=== PATIENT | male | born 1995 | race African-American/Black ===

== ENCOUNTER 2018-07-21 11:58 | Emergency (ER) | payer SELFPAY ==
[~2018-07-21] VITALS: Ht 185.4 cm; Wt 73.5 kg
[2018-07-21 12:31] LABS: AMPHET/METH SCREEN,URINE POSITIVE (NEGATIVE); BARBITURATE SCREEN, URINE NEGATIVE (NEGATIVE); BENZODIAZEPINES SCREEN,URINE NEGATIVE (NEGATIVE); CANNABINOID SCREEN,URINE POSITIVE (NEGATIVE); COCAINE SCREEN,URINE NEGATIVE (NEGATIVE); METHADONE SCREEN, URINE NEGATIVE (NEGATIVE); OPIATE SCREEN,URINE POSITIVE (NEGATIVE)
[2018-07-21 12:32] LABS: PHENCYCLIDINE SCREEN,URINE NEGATIVE (NEGATIVE)
[2018-07-21] MEDS ORDERED: ACETAMINOPHEN 325 MG TABLET PO ONE (12:45)
[2018-07-21] MEDS ORDERED: HALOPERIDOL LACTATE 5 MG/ML VIAL ONE (13:01)
[2018-07-21] MEDS ORDERED: DiphenhydrAMINE HCL 50 MG/ML VIAL ONE (13:01)
[2018-07-21] MEDS ORDERED: LORazepam 2 MG/ML VIAL ONE (13:01)
[2018-07-21 13:33] LABS: BASOPHILS % (AUTO) 0.6 % (0.0-2.0); EOSINOPHILS % (AUTO) 0.5 % (1.0-6.0); HEMATOCRIT 40.7 % (41-53); HEMOGLOBIN 13.5 g/dL (13.5-17.5); LYMPHOCYTES % (AUTO) 33.7 % (22.0-44.0); MEAN CORPUSCULAR HEMOGLOBIN 28.9 pg (26.0-34.0); MEAN CORPUSCULAR HGB CONC 33.2 G/dL (31.0-37.0); MEAN CORPUSCULAR VOLUME 87 fL (80-100); MONOCYTES % (AUTO) 11.3 % (2.0-9.0); NEUTROPHILS # (AUTO) 4.7 K/uL (1.8-7.7); NEUTROPHILS % (AUTO) 53.9 % (40.0-70.0); PLATELET COUNT (AUTO) 296 K/uL (150-450); RED BLOOD CELL COUNT(AUTO) 4.67 MIL/uL (4.50-5.90); RED CELL DISTRIBUTION WIDTH 14.2 % (11.5-14.5)
[2018-07-21 14:04] LABS: ANION GAP 12 mmol/L (8-16); CALCIUM, TOTAL 9.5 mg/dL (8.8-10.5); CARBON DIOXIDE 26 mmol/L (22-29); CHLORIDE 102 mmol/L (98-107); GLOMERULAR FILTR. RATE CALC > 60 mL/min (>60); GLUCOSE,RANDOM 75 mg/dL (70-110); POTASSIUM 4.2 mmol/L (3.5-5.1); SODIUM SERUM 140 mmol/L (136-145); UREA NITROGEN, BLOOD 22 mg/dL (7-18)
[2018-07-21 14:09] LABS: ALANINE AMINOTRANSFERASE 40 U/L (12-78); ALBUMIN 4.3 g/dL (3.4-5.0); ALKALINE PHOSPHATASE 99 U/L (46-116); ASPARTATE AMINOTRANSFERASE 34 U/L (15-37); BILIRUBIN,TOTAL 0.7 mg/dL (0.1-1.0); TOTAL PROTEIN, SERUM 8.2 g/dL (6.4-8.2)
[2018-07-21 18:28] VITALS: BP 110/66
== END 2018-07-21 20:50 | disposition home or self-care (01) ==
LOC: EMS 12:00
DX: F29 Unspecified psychosis not due to a substance or known physiological condition (principal); F15.90 Other stimulant use, unspecified, uncomplicated; Z91.018 Allergy to other foods
CPT/HCPCS: 36415; 80053; 80307; 85025; 99285; G0480; J1200; J1630; J2060

== ENCOUNTER 2019-03-15 13:48 | Inpatient (IN) | payer MEDICAID ==
[~2019-03-15] VITALS: Ht 185.4 cm; Wt 79.8 kg
[2019-03-15 14:26] LABS: BASOPHILS % (AUTO) 1.4 % (0.0-2.0); EOSINOPHILS % (AUTO) 2.2 % (1.0-6.0); HEMATOCRIT 40.2 % (41-53); LYMPHOCYTES # (AUTO) 1.9 K/uL (1.0-4.8); LYMPHOCYTES % (AUTO) 38.2 % (22.0-44.0); MEAN CORPUSCULAR HEMOGLOBIN 29.3 pg (26.0-34.0); MEAN CORPUSCULAR HGB CONC 32.3 G/dL (31.0-37.0); MEAN CORPUSCULAR VOLUME 91 fL (80-100); MONOCYTES # (AUTO) 0.8 K/uL (0.1-1.0); MONOCYTES % (AUTO) 16.1 % (2.0-9.0); NEUTROPHILS # (AUTO) 2.1 K/uL (1.8-7.7); NEUTROPHILS % (AUTO) 42.1 % (40.0-70.0); PLATELET COUNT (AUTO) 227 K/uL (150-450); RED BLOOD CELL COUNT(AUTO) 4.43 MIL/uL (4.50-5.90)
[2019-03-15 14:38] LABS: ANION GAP 10 mmol/L (8-16); CALCIUM, TOTAL 8.6 mg/dL (8.8-10.5); CARBON DIOXIDE 25 mmol/L (22-29); CHLORIDE 107 mmol/L (98-107); CREATININE 1.09 mg/dL (0.60-1.30); GLOMERULAR FILTR. RATE CALC > 60 mL/min (>60); GLUCOSE,RANDOM 100 mg/dL (70-110); POTASSIUM 3.6 mmol/L (3.5-5.1); SODIUM SERUM 142 mmol/L (136-145); UREA NITROGEN, BLOOD 19 mg/dL (7-18)
[2019-03-15 14:43] LABS: ALANINE AMINOTRANSFERASE 18 U/L (12-78); ALBUMIN 4.1 g/dL (3.4-5.0); ALKALINE PHOSPHATASE 97 U/L (46-116); ASPARTATE AMINOTRANSFERASE 32 U/L (15-37); BILIRUBIN,TOTAL 0.5 mg/dL (0.1-1.0); TOTAL PROTEIN, SERUM 7.8 g/dL (6.4-8.2)
[2019-03-15 14:46] LABS: AMPHET/METH SCREEN,URINE POSITIVE (NEGATIVE); BARBITURATE SCREEN, URINE NEGATIVE (NEGATIVE); BENZODIAZEPINES SCREEN,URINE NEGATIVE (NEGATIVE); CANNABINOID SCREEN,URINE POSITIVE (NEGATIVE); COCAINE SCREEN,URINE NEGATIVE (NEGATIVE); METHADONE SCREEN, URINE NEGATIVE (NEGATIVE); OPIATE SCREEN,URINE NEGATIVE (NEGATIVE)
[2019-03-15 14:48] LABS: PHENCYCLIDINE SCREEN,URINE NEGATIVE (NEGATIVE)
[2019-03-15] MEDS ORDERED: HALOPERIDOL 5 MG TABLET PO PRN (17:45)
[2019-03-15 20:13] VITALS: BP 122/74
[2019-03-15] MEDS ORDERED: IBUPROFEN 400 MG TABLET PO PRN (20:30)
[2019-03-15] MEDS: ZOLPIDEM TARTRATE 10 MG TABLET PO PRN (20:43)
[2019-03-16 02:15] VITALS: BP 115/75
[2019-03-16] MEDS: LORazepam 2 MG TABLET PO PRN (02:46)
[2019-03-16 12:58] VITALS: BP 112/69
[2019-03-16] MEDS: RisperiDONE 2 MG TABLET PO SCH (16:05)
[2019-03-16] MEDS: TraZODone HCL 50 MG TABLET PO SCH (20:24)
[2019-03-16] MEDS: ZOLPIDEM TARTRATE 10 MG TABLET PO PRN (22:02)
[2019-03-17 02:00] VITALS: BP 140/99
[2019-03-17] MEDS: RisperiDONE 2 MG TABLET PO SCH ×2 (09:31→17:32)
[2019-03-17 10:33] VITALS: BP 144/99
[2019-03-17 16:23] VITALS: BP 141/85
[2019-03-17] MEDS: TraZODone HCL 50 MG TABLET PO SCH (20:12)
[2019-03-17] MEDS: LORazepam 2 MG TABLET PO PRN (20:12)
[2019-03-17] MEDS: ZOLPIDEM TARTRATE 10 MG TABLET PO PRN (21:22)
[2019-03-18 01:34] VITALS: BP 145/79
[2019-03-18] MEDS: LORazepam 2 MG TABLET PO PRN ×2 (02:15→20:22)
[2019-03-18] MEDS: RisperiDONE 2 MG TABLET PO SCH ×3 (08:48→16:18)
[2019-03-18 09:05] VITALS: BP 118/80
[2019-03-18 16:37] VITALS: BP 102/79
[2019-03-18] MEDS: TraZODone HCL 50 MG TABLET PO SCH (20:28)
[2019-03-18] MEDS: ZOLPIDEM TARTRATE 10 MG TABLET PO PRN (21:02)
[2019-03-19] MEDS: RisperiDONE 2 MG TABLET PO SCH (08:39)
[2019-03-19] MEDS ORDERED: RisperiDONE 1 MG TABLET PO ONE (09:30)
[2019-03-19 14:07] VITALS: BP 116/64
[2019-03-19 16:21] VITALS: BP 117/70
[2019-03-19] MEDS: RisperiDONE 3 MG TABLET PO SCH (16:42)
[2019-03-19] MEDS: TraZODone HCL 50 MG TABLET PO SCH (21:10)
[2019-03-19] MEDS: ZOLPIDEM TARTRATE 10 MG TABLET PO PRN (21:10)
[2019-03-20] MEDS: LORazepam 2 MG TABLET PO PRN (03:55)
[2019-03-20 06:40] VITALS: BP 125/76
[2019-03-20] MEDS: RisperiDONE 3 MG TABLET PO SCH ×2 (09:00→17:26)
[2019-03-20 09:06] VITALS: BP 125/73
[2019-03-20 18:35] VITALS: BP 126/70
[2019-03-20] MEDS: TraZODone HCL 50 MG TABLET PO SCH (21:33)
[2019-03-20] MEDS: ZOLPIDEM TARTRATE 10 MG TABLET PO PRN (22:32)
[2019-03-21 02:35] VITALS: BP 138/99
[2019-03-21] MEDS: RisperiDONE 3 MG TABLET PO SCH ×2 (08:44→16:24)
[2019-03-21 09:35] VITALS: BP 130/63
[2019-03-21 16:38] VITALS: BP 107/65
[2019-03-21] MEDS: TraZODone HCL 50 MG TABLET PO SCH (20:37)
[2019-03-22 08:00] VITALS: BP 112/72
[2019-03-22] MEDS: RisperiDONE 3 MG TABLET PO SCH ×2 (09:46→16:58)
[2019-03-22 16:48] VITALS: BP 104/58
[2019-03-22] MEDS: TraZODone HCL 50 MG TABLET PO SCH (21:52)
[2019-03-22] MEDS: ZOLPIDEM TARTRATE 10 MG TABLET PO PRN (23:14)
[2019-03-23 08:00] VITALS: BP 107/67
[2019-03-23] MEDS: RisperiDONE 3 MG TABLET PO SCH ×2 (09:21→16:04)
[2019-03-23] MEDS: LORazepam 2 MG TABLET PO PRN (19:07)
[2019-03-23 19:19] VITALS: BP 123/71
[2019-03-23] MEDS: TraZODone HCL 50 MG TABLET PO SCH (20:45)
[2019-03-24] MEDS: ZOLPIDEM TARTRATE 10 MG TABLET PO PRN ×2 (00:33→23:44)
[2019-03-24 08:47] VITALS: BP 121/67
[2019-03-24] MEDS: RisperiDONE 3 MG TABLET PO SCH ×2 (09:04→16:08)
[2019-03-24] MEDS: LORazepam 2 MG TABLET PO PRN (16:08)
[2019-03-24 16:29] VITALS: BP 127/67
[2019-03-24] MEDS: TraZODone HCL 50 MG TABLET PO SCH (21:17)
[2019-03-25 08:00] VITALS: BP 110/85
[2019-03-25] MEDS: RisperiDONE 3 MG TABLET PO SCH ×2 (09:10→16:37)
[2019-03-25 17:21] VITALS: BP 97/64
[2019-03-25] MEDS: TraZODone HCL 50 MG TABLET PO SCH (20:30)
[2019-03-26 08:05] VITALS: BP 119/72
[2019-03-26] MEDS: RisperiDONE 3 MG TABLET PO SCH ×2 (10:59→17:48)
[2019-03-26 16:10] VITALS: BP 109/63
[2019-03-26] MEDS: TraZODone HCL 50 MG TABLET PO SCH (20:21)
[2019-03-27 00:15] VITALS: BP 107/60
[2019-03-27] MEDS: ZOLPIDEM TARTRATE 10 MG TABLET PO PRN (00:17)
[2019-03-27] MEDS ORDERED: TRAZ-252 PO (08:49)
[2019-03-27] MEDS ORDERED: RISP3 PO (08:49)
[2019-03-27 09:08] VITALS: BP 134/70
[2019-03-27] MEDS: RisperiDONE 3 MG TABLET PO SCH (09:49)
== END 2019-03-27 10:35 | disposition home or self-care (01) | DRG 750 ==
LOC: EMS 13:50 → 3EI 19:19 → 3EC 03-20 15:48 → 3EI 03-22 06:30
PROVIDERS: ADMIT Psychiatry & Neurology Child & Adolescent Psychiatry; ATTEND Psychiatry & Neurology Child & Adolescent Psychiatry
DX: F25.9 Schizoaffective disorder, unspecified (principal); R45.851 Suicidal ideations; Z59.0 Homelessness; D64.9 Anemia, unspecified; F12.90 Cannabis use, unspecified, uncomplicated; S62.306A Unspecified fracture of fifth metacarpal bone, right hand, initial encounter for closed fracture; F15.10 Other stimulant abuse, uncomplicated; F43.10 Post-traumatic stress disorder, unspecified; S62.609A Fracture of unspecified phalanx of unspecified finger, initial encounter for closed fracture; W18.39XA Other fall on same level, initial encounter; Y93.89 Activity, other specified; Y92.89 Other specified places as the place of occurrence of the external cause; Y99.8 Other external cause status; Z79.899 Other long term (current) drug therapy
CPT/HCPCS: G0480